=== PATIENT | female | born 1980 | race Caucasian/White ===

== ENCOUNTER → 2017-03-28 | Outpatient (CLI) | payer OTHER | END | disposition home or self-care (01) | LOC: EDBD 15:28 → LAB 15:28 | PROVIDERS: ATTEND Family Medicine | DX: K21.9 Gastro-esophageal reflux disease without esophagitis (principal); K44.9 Diaphragmatic hernia without obstruction or gangrene | CPT/HCPCS: 87338 ==

== ENCOUNTER 2018-01-16 08:07 | Day surgery (SDC) | payer OTHER ==
[~2018-01-16] VITALS: Ht 167.6 cm; Wt 60.4 kg
[2018-01-16 08:31] VITALS: BP 114/76
[2018-01-16] MEDS ORDERED: LIDOCAINE-MPF 1%, 2ML ONE (08:31)
[2018-01-16] MEDS ORDERED: NONE PER PT (08:31)
[2018-01-16] MEDS ORDERED: LACTATED RINGERS 1,000 ML IV SCH (08:34)
[2018-01-16] MEDS ORDERED: LIDOCAINE-MPF 1%, 2ML INFIL ONE (09:00)
[2018-01-16] MEDS ORDERED: PROPOFOL 10 MG/ML, 20ML ONE (10:02)
[2018-01-16] MEDS ORDERED: DEXAMETHASONE 4 MG/ML, 1ML ONE (10:02)
[2018-01-16] MEDS ORDERED: ONDANSETRON 2MG/ML, 2ML ONE (10:02)
[2018-01-16] MEDS ORDERED: SUCCINYLCHOLINE 20 MG/ML, 10ML ONE (10:02)
[2018-01-16] MEDS ORDERED: FENTANYL PF 100 MCG/2ML ONE (10:03)
[2018-01-16] MEDS ORDERED: MIDAZOLAM 1 MG/ML, 2ML ONE (10:03)
[2018-01-16] MEDS ORDERED: LABETALOL 5MG/ML, 20ML IV PRN (11:00)
[2018-01-16] MEDS ORDERED: FENTANYL PF 100 MCG/2ML IV PRN (11:00)
[2018-01-16] MEDS ORDERED: ACETAMINOPHEN 325 MG TABLET PO PRN (11:00)
[2018-01-16] MEDS ORDERED: hydrALAzine 20 MG/ML, 1ML IV PRN (11:00)
[2018-01-16] MEDS ORDERED: OXYcodone 5 MG/5 ML ORAL.SOL UDC PO PRN (11:00)
[2018-01-16] MEDS ORDERED: ONDANSETRON 2MG/ML, 2ML IVPush PRN (11:00)
== END 2018-01-16 12:05 ==
LOC: OUT 08:07
PROVIDERS: ATTEND Internal Medicine
DX: K22.0 Achalasia of cardia (principal); K21.9 Gastro-esophageal reflux disease without esophagitis; K44.9 Diaphragmatic hernia without obstruction or gangrene; Z87.891 Personal history of nicotine dependence; Z72.89 Other problems related to lifestyle; Z87.01 Personal history of pneumonia (recurrent)
CPT/HCPCS: 43249; 71045; 76000; J0330; J1100; J2250; J2405; J2704; J3010; J3490; J7120

== ENCOUNTER 2018-01-18 12:31 | Emergency (ER) | payer OTHER ==
[~2018-01-18] VITALS: Ht 167.6 cm; Wt 62.0 kg
[~2018-01-18 12:31] MED LIST: NONE PER PT
[2018-01-18 12:45] VITALS: BP 112/74
[2018-01-18] MEDS ORDERED: HYDROmorphone 1 MG/ML, 1ML ONE (13:54)
[2018-01-18] MEDS ORDERED: HYDROmorphone 1 MG/ML, 1ML IM PRN (14:00)
[2018-01-18] MEDS ORDERED: SODIUM CHLORIDE FLUSH 10ML SYR IVF ONE (14:00)
[2018-01-18] MEDS ORDERED: OMNIPAQUE 350 MG/ML, 75ML BOTTLE ONE ×2 (15:08→15:09)
[2018-01-18] MEDS ORDERED: PANTOPRAZOLE 20MG TABLET PO ONE (15:30)
[2018-01-18] MEDS ORDERED: MAALOX/HYOSCYAMINE/LIDOCAINE 45 ML BTL PO ONE (15:30)
[2018-01-18] MEDS ORDERED: PANTOPRAZOLE 20MG TABLET ONE (15:41)
[2018-01-18] MEDS ORDERED: MAALOX/HYOSCYAMINE/LIDOCAINE 45 ML BTL ONE (15:41)
== END 2018-01-18 16:22 | disposition home or self-care (01) ==
LOC: ED 16:16
DX: K20.9 Esophagitis, unspecified (principal)
CPT/HCPCS: 71260; 96372; 99284; J1170; Q9967